=== PATIENT | male | born 1975 | race American Indian/Alaskan Native ===

== ENCOUNTER 2020-08-27 12:00 | Emergency (ER) | payer SELFPAY | END 2020-08-27 12:20 | disposition left against medical advice (07) | LOC: ED 12:00 | DX: Z00.8 Encounter for other general examination (principal); Z53.21 Procedure and treatment not carried out due to patient leaving prior to being seen by health care provider ==

== ENCOUNTER 2020-11-10 00:39 | Emergency (ER) | payer SELFPAY ==
[2020-11-10] MEDS ORDERED: HYDROcodone/ACETAMINOPHEN 5-325 MG TAB PO ONE ×2 (01:18→01:32)
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
[2020-11-10 02:41] VITALS: BP 118/78
== END 2020-11-10 02:42 | disposition home or self-care (01) ==
LOC: ED 00:39
DX: S42.024A Nondisplaced fracture of shaft of right clavicle, initial encounter for closed fracture (principal); F17.200 Nicotine dependence, unspecified, uncomplicated; Z79.899 Other long term (current) drug therapy
CPT/HCPCS: 71045

== ENCOUNTER 2020-11-19 01:57 | Emergency (ER) | payer SELFPAY ==
[2020-11-19 03:23] VITALS: BP 116/84
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
== END 2020-11-19 05:35 | disposition home or self-care (01) ==
LOC: ED 01:57
DX: S42.022A Displaced fracture of shaft of left clavicle, initial encounter for closed fracture (principal); F17.200 Nicotine dependence, unspecified, uncomplicated; Z98.890 Other specified postprocedural states; Z79.899 Other long term (current) drug therapy; X58.XXXA Exposure to other specified factors, initial encounter; Y93.89 Activity, other specified; Y92.89 Other specified places as the place of occurrence of the external cause; Y99.8 Other external cause status
CPT/HCPCS: 99282

== ENCOUNTER 2021-01-18 10:24 | Emergency (ER) | payer SELFPAY | END 2021-01-18 11:50 | disposition left against medical advice (07) | LOC: ED 10:24 | DX: Z53.21 Procedure and treatment not carried out due to patient leaving prior to being seen by health care provider (principal) ==